=== PATIENT | female | born 1970 | race Caucasian/White ===

== ENCOUNTER 2016-12-10 20:08 | Emergency (ER) | payer MEDICAID ==
[~2016-12-10] VITALS: Ht 162.6 cm; Wt 79.7 kg
[2016-12-10 21:16] LABS: PATH.CAST-FLAG NOT PRESENT; SPERM-FLAG NOT PRESENT; SRC-FLAG NOT PRESENT; XTAL-FLAG NOT PRESENT; YLC-FLAG NOT PRESENT
[2016-12-10 21:58] LABS: HEMOGLOBIN 12.3 g/dL (11.7-16.4)
[2016-12-10 22:09] LABS: ASPARTATE AMINO TRANSFERASE 27 U/L (15-37); BLOOD UREA NITROGEN 7 mg/dL (7-18)
[2016-12-11 00:03] VITALS: BP 124/72
== END 2016-12-11 00:05 | disposition home or self-care (01) ==
LOC: ED 23:42
DX: R60.0 Localized edema (principal); R42 Dizziness and giddiness; R51 Headache; M10.9 Gout, unspecified; H53.8 Other visual disturbances; Z88.2 Allergy status to sulfonamides
CPT/HCPCS: 36415; 70450; 80053; 81001; 85025; 93005; 93970

== ENCOUNTER 2017-08-28 18:24 | Emergency (ER) | payer MEDICAID ==
[~2017-08-28] VITALS: Ht 165.1 cm; Wt 75.2 kg
[2017-08-28 18:28] VITALS: BP 133/70
== END 2017-08-28 20:14 | disposition home or self-care (01) ==
LOC: ED 19:55
DX: H92.22 Otorrhagia, left ear (principal); G43.909 Migraine, unspecified, not intractable, without status migrainosus; R51 Headache
CPT/HCPCS: 99281

== ENCOUNTER 2018-11-30 16:22 | Emergency (ER) | payer MEDICAID ==
[~2018-11-30] VITALS: Ht 162.6 cm; Wt 76.0 kg
[~2018-11-30 16:22] MED LIST: [UNRECOGNIZED DRUG - REMARK]
[2018-11-30] MEDS ORDERED: MACA500C PO (16:50)
--- NOTE | 2018-11-30 16:53 | NUR ---
Onset of R sd facial numbness tingling yesterday with improvement & then return of s/s today. Sensation on R sd of face is less than on L sd but otherwise pt is A&O x4, steady gait, no slurred speech or facial droop & has = BLE & BUE strength. Code neuro initially called but canceled by Dr. Wright after her neuro assessment of pt. EKG done, IV inserted w/ labs drawn. Cardiac, NIBP & SPO2 monitors IP.
[2018-11-30 17:21] LABS: ALBUMIN 3.9 g/dL (3.4-5.0); ANION GAP 4 mmol/L (5-15); BASOPHILS # (AUTO) 0.07 x10^3/uL (0-0.1); BASOPHILS % (AUTO) 1 % (0-1); CALCIUM 8.8 mg/dL (8.5-10.1); CHLORIDE 108 mmol/L (98-107); CREATININE 0.86 mg/dL (0.55-1.02); EOSINOPHILS # (AUTO) 0.18 x10^3/uL (0-0.4); EOSINOPHILS % (AUTO) 2 % (1-7); LYMPHOCYTES # (AUTO) 2.16 x10^3/uL (1-3.4); LYMPHOCYTES % (AUTO) 28 % (22-44); MD NO; MEAN CORPUSCULAR HEMOGLOBIN 30.5 pg (27.0-34.8); MEAN CORPUSCULAR HGB CONC 34.4 g/dL (32.4-35.8); MEAN CORPUSCULAR VOLUME 88.6 fL (80-100); MONOCYTES # (AUTO) 0.59 x10^3/uL (0.2-0.8); MONOCYTES % (AUTO) 8 % (2-9); NEUTROPHILS # (AUTO) 4.85 x10^3/uL (1.8-6.8); NEUTROPHILS % (AUTO) 62 % (42-75); PLATELET COUNT 324 x10^3/uL (130-400); RED BLOOD COUNT 4.66 x10^6/uL (3.82-5.3); RED CELL DISTRIBUTION WIDTH 13.3 % (9.6-15.2)
--- NOTE | 2018-11-30 17:23 | NUR ---
Pt in CT
[2018-11-30 17:36] VITALS: BP 136/70
--- NOTE | 2018-11-30 17:36 | NUR ---
Neuro remains intact. Pt is tearful from anxiety but being comforted by family @BS. CT head read pending.
--- NOTE | 2018-11-30 18:15 | NUR ---
Patient given discharge instructions and they have confirmed that they understand the instructions. Patient ambulatory with steady gait.
== END 2018-11-30 18:16 | disposition home or self-care (01) ==
LOC: ED 18:10
DX: F41.1 Generalized anxiety disorder (principal)
CPT/HCPCS: 36415; 70450; 80048; 82040; 83605; 85025; 93005; 99284

== ENCOUNTER → 2020-10-05 | Outpatient (CLI) | payer OTHER ==
[~2020-10-05] MED LIST changes: +MACA500C PO
== END | disposition home or self-care (01) ==
LOC: RAD 11:36
PROVIDERS: ATTEND Family Medicine
DX: R06.00 Dyspnea, unspecified (principal); Z86.16 Personal history of COVID-19; Z86.19 Personal history of other infectious and parasitic diseases
CPT/HCPCS: 71046

== ENCOUNTER → 2020-11-16 | Outpatient (CLI) | payer OTHER | END | disposition home or self-care (01) | LOC: RAD 12:07 | PROVIDERS: ATTEND Internal Medicine | DX: R05 Cough (principal) | CPT/HCPCS: 71046 ==

== ENCOUNTER 2020-11-17 08:21 | Outpatient (CLI) | payer OTHER | END 2020-11-17 23:59 | disposition home or self-care (01) | LOC: CFH 08:21 | PROVIDERS: ATTEND Internal Medicine Cardiovascular Disease | DX: R94.31 Abnormal electrocardiogram [ECG] [EKG] (principal); R06.02 Shortness of breath; R07.89 Other chest pain | CPT/HCPCS: 78452; 93017; A9502 ==

== ENCOUNTER → 2021-03-02 | Outpatient (CLI) | payer OTHER | END | disposition home or self-care (01) | LOC: CFH 12:27 | PROVIDERS: ATTEND Registered Nurse | DX: I36.1 Nonrheumatic tricuspid (valve) insufficiency (principal); E03.9 Hypothyroidism, unspecified; Z86.16 Personal history of COVID-19 | CPT/HCPCS: 93306 ==